=== PATIENT | male | born 1945 | race Caucasian/White ===

== ENCOUNTER 2019-09-16 05:36 | Observation (INO) | payer MEDICARE, OTHER ==
[2019-09-05 12:13] LABS: ABSOLUTE EOSINOPHILS 0.2 thou/uL (0.0-0.7); ABSOLUTE LYMPHOCYTES 2.9 thou/uL (0.8-5.3); ABSOLUTE MONOCYTES 0.6 thou/uL (0.0-1.2); ABSOLUTE NEUTROPHILS 3.6 thou/uL (1.6-8.1); BASOPHILS 0.3 %; EOSINOPHILS 2.8 %; HEMATOCRIT 47.3 % (42.0-52.0); LYMPHOCYTES 39.1 %; MCH 32.7 pg (26.0-34.0); MCHC 33.8 g/dL (28.0-37.0); MCV 96.6 fL (80.0-100.0); MONOCYTES 8.4 %; MPV 6.8 fl. (7.2-11.1); NUCLEATED RBCS 0 /100WBC; PLATELET COUNT* 245 thou/uL (150-400); POLYS 49.4 %; RDW-CV 13.2 % (10.5-14.5); WBC 7.4 thou/uL (4.0-11.0)
[2019-09-05 12:26] LABS: APTT 25.4 Seconds (25.0-31.3); PROTIME 10.1 Seconds (9.20-11.50)
[2019-09-05 12:30] LABS: ALBUMIN 4.3 g/dL (3.4-5.0); CALCIUM 9.1 mg/dL (8.5-10.1); CREATININE 1.2 mg/dL (0.6-1.3); POTASSIUM 4.6 mmol/L (3.5-5.1); TOTAL BILIRUBIN 1.1 mg/dL (<0.1-1.0)
[2019-09-05 13:16] LABS: ESR (SEDRATE) 7 mm/hr (0-20)
--- NOTE | 2019-09-11 13:44 | EKG ---
[place] [address] ELECTROCARDIOGRAM REPORT Name: YIKENDRA Muniz Room: PRE IN [facility]#: [id number] Admission: Attend Phys: Jaden Da Silva Discharge: Date of : 43 Date of Service: 09/05/19 1215 Report #: [id number] THIS REPORT FOR: cc: Tunde Hector Marvin E. DO Biggs, F. Douglas MD [facility] ~ THIS REPORT FOR: //name// [facility] Test Date: 2019-09-05 Test Time: 12:15:15 Pat Name: KENDRA YI Department: Room: Gender: M Hog Handler: : 1945 Requested By: Jaden Da Silva Order Number: [id number] Reading MD: Castillo Delgadillo Measurements Intervals [place] Rate: 62 P: 53 [place]: 175 QRS: 45 QRSD: 89 T: 42 QT: 418 QTc: 425 Interpretive Statements Sinus rhythm No previous ECG available for comparison Electronically Signed On 09-05-2019 14:33:53 COMMODITY LOAN CLERK by Castillo Delgadillo [email or web address] <ELECTRONICALLY SIGNED> By: Sam Delgadillo MD, FACC 09/05/19 1433 1215 1215 F. Castillo Delgadillo MD, [facility] /EPI
[~2019-09-16] VITALS: Ht 180.3 cm; Wt 77.1 kg
[~2019-09-16 05:36] MED LIST: APAP650 PO; HYDRALAZINE 10M10 MG PO; SIMVASTATIN40 MG PO; TOPROL XL50 MG
[2019-09-16 16:18] VITALS: BP 126/70
[2019-09-16 20:30] VITALS: BP 118/71
[2019-09-17] VITALS: BP 114/68
[2019-09-17 07:40] VITALS: BP 129/79
[2019-09-17] MEDS ORDERED: ELIQUIS5 MG PO (10:16)
[2019-09-17] MEDS ORDERED: OXYCODONE HCL 55 MG PO (10:16)
[2019-09-17 10:36] VITALS: BP 129/79
[2019-09-17] MEDS ORDERED: ASPIRIN325 PO (12:04)
[2019-09-17 12:34] VITALS: BP 129/79
--- NOTE | 2019-09-19 14:06 | OP ---
[facility] [place] [place] [address] OPERATIVE REPORT Name: KENDRA YI Room: [address] M.R.#: [id number] Admission: 09/16/19 Attend Phys: Arley Melgar Discharge: 09/17/19 Date of : 43 Report #: [id number] THIS REPORT FOR: //name// cc: Tunde Hector Marvin E. DO ~ THIS REPORT FOR: //name// CC: Tunde Da Silva DICTATED BY: Al Ramirez DO DATE OF SERVICE: 09/16/2019 PREOPERATIVE DIAGNOSIS: Right shoulder primary glenohumeral osteoarthritis. POSTOPERATIVE DIAGNOSIS: Right shoulder primary glenohumeral osteoarthritis. SURGERY PERFORMED: Right anatomic total shoulder arthroplasty. SURGEON: Slava Morrow DO ELECTRIC POWERLINE EXAMINER: Al Ramirez DO SECOND WEIGHT REDUCING TECHNICIAN: Yvette Morrow DO ANESTHESIA: General with interscalene block. ESTIMATED BLOOD LOSS: 170 mL. COMPLICATIONS: None. CONDITION: Stable. DISPOSITION: To PACU. ORTHOPEDIC IMPLANTS: Biomet anatomic total shoulder system was utilized with the following components: 1. Size 14 mini humeral stem. 2. Size medium 4 mm hybrid glenoid base. 3. 46 mm variable offset modular head, 18 mm height. 4. A porous titanium glenoid post. INDICATIONS FOR PROCEDURE: The patient is a pleasant 73-year-old male who has been following outpatient clinic regarding longstanding right shoulder pain. He [address] [address] OPERATIVE REPORT Name: KENDRA YI Room: [address] Kale Liu#: [id number] Admission: 09/16/19 Attend Phys: Arley Melgar Discharge: 09/17/19 Date of : 43 Report #: [id number] has failed conservative care consisting of work corticosteroid injections, NSAIDs, physical therapy and activity modifications. He has failed conservative care and is wished to proceed with right total shoulder arthroplasty. We discussed risks, benefits, complications and alternatives with the patient. Risks include but are not limited to, bleeding, DVT, PE, infection, continued shoulder pain, periprosthetic fracture, instability/dislocation need for repeat surgery and complications with anesthesia and even . The patient expressed understanding and wished to proceed. DESCRIPTION OF PROCEDURE: The patient was transferred to the operating suite and placed on the operating table in the supine position. He was then given the benefit of general anesthesia. He was then placed into beach chair position and the right shoulder area and upper extremity were prepped and draped in usual sterile fashion. A timeout was taken to confirm the appropriate patient identification, operative site and procedure to be performed. All in the room were in agreement timeout. Dissection began, the skin using a scalpel overlying the deltopectoral interval. Electrocautery was then used to dissect through the subcutaneous tissue down to the deltopectoral fascia. The appropriate interval was found with the corresponding course of the cephalic vein. The curved scissor was then used to free up the cephalic vein and find our deltopectoral interval down to the level of the subdeltoid space. Blunt dissection was used to lyse adhesions within the subdeltoid and subacromial spaces. Deltoid retractor was placed as well as a retractor along the conjoined tendon. Care was taken not to retract aggressively as to protect the musculocutaneous nerve. The bicipital groove was identified and the roof of the bicep tendon was incised using a scissor. Biceps tendon was followed into the glenohumeral joint. Then, leaving a cuff approximately 1 cm of subscapularis attachment, the tenotomy was performed to the subscapularis tendon. The humerus was externally rotated and the subscapularis tendon was subperiosteally elevated off the medial humerus. The humeral head was then dislocated and exposed. We used reamers to obtain access to the humeral canal through the humeral head. The humeral canal was then sequentially reamed to a size 14 mm. We then placed our cutting guide over the final reamer. The cutting guide was pinned into position set to resect at 45 degrees of inclination and 30 degrees of retroversion. The proximal humerus was then resected through the cutting block. The humeral canal was then irrigated and the final humeral stem was malleted into position. Attention was then addressed to the glenoid. Further releases were performed to allow for appropriate exposure. The glenoid guide was inserted on the glenoid and a guide pin was drilled into the appropriate position. We then reamed and drilled overlying the guide pin for the central peg. Three drill holes were then drilled into the glenoid. Trial glenoid was then placed along with a trial humeral head. Trial reduction was performed, which demonstrated appropriate tension of soft tissues including the conjoined tendon. There was appropriate [facility] [address] [place] [address] OPERATIVE REPORT Name: KENDRA YI Room: [address] Kale Liu#: [id number] Admission: 09/16/19 Attend Phys: Arley Melgar Discharge: 09/17/19 Date of : 43 Report #: [id number] range of motion without any obvious signs of instability. Trial glenoid component and humeral head were removed. The shoulder was again irrigated. Cement was mixed and then applied to glenoid baseplate and the drill holes with on and bony glenoid. Final glenoid component was malleted into position. Another trial reduction was performed with humeral head and again found to be appropriately tensioned. Final humeral head was then impacted on the humeral stem. Final reduction was performed. Once again, we tested range of motion and stability of the shoulder. Soft tissue tensioning was noted to be appropriate. There was good range of motion of the shoulder, without any obvious subluxation or any signs of instability. The shoulder was again irrigated and topical vancomycin powder was applied. The subscapularis tendon was repaired back to the intact attachment on to the humerus using a #1 FiberWire, multiple [id number] stitches were performed to repair the tendon. The deltopectoral fascia was then closed using #1 Vicryl in a [id number] fashion. Subcutaneous tissue was closed using 2-0 Monocryl. Final skin closure was performed using a subcuticular running 3-0 Stratafix followed by skin glue. Sterile dressing was applied. The patient was placed into a slingshot immobilizer and transferred to PACU in stable condition. Needle and sponge counts were correct at the end procedure x 2. ATTESTATION: Dr. Morrow was present and scrubbed in through the entirety of procedure. <ELECTRONICALLY SIGNED> By: Slava Morrow, 09/19/19 1406 1404 [id number] stephanie Cardoso
== END 2019-09-17 12:36 | disposition home or self-care (01) ==
LOC: M.PRE 05:36 → M.TBA 08:33 → M.PRE 09:49 → M.ORTHSURG 15:43
PROVIDERS: ADMIT Internal Medicine
DX: M19.011 Primary osteoarthritis, right shoulder (principal); E78.5 Hyperlipidemia, unspecified; I10 Essential (primary) hypertension